=== PATIENT | male | born 1980 | race Caucasian/White ===

== ENCOUNTER 2024-06-03 12:18 | Emergency (ER) | payer OTHER ==
[~2024-06-03] VITALS: Ht 185.4 cm; Wt 83.0 kg
[~2024-06-03 12:18] MED LIST: OMEP40CA20 MT
[2024-06-03 12:20] VITALS: TEMP 36.8; O2SAT 98
[2024-06-03 14:00] VITALS: BP 128/95; PULSE 80; RESP 18; O2SAT 95
[2024-06-03 14:45] LABS: BASOPHILS % 0.7 % (0.0-2.0); CHLORIDE 111 mEq/L (98-107); DIFFERENTIAL COMMENT 0; EOSINOPHILS % 0.1 % (0.0-5.0); HEMATOCRIT. 47.1 % (42.0-52.0); HEMOGLOBIN. 15.8 g/dL (14.0-18.0); LYMPHOCYTES % 29.8 % (20.0-50.0); MEAN CORPUSCULAR HEMOGLOBIN 33.8 pg (28.0-32.0); MEAN CORPUSCULAR HGB CONC 33.5 g/dL (31.0-37.0); MEAN CORPUSCULAR VOLUME 100.9 fL (80.0-94.0); MEAN PLATELET VOLUME 7.4 fl (7.4-10.4); MONOCYTES % 7.4 % (2.0-8.0); PLATELET 275 x1000/uL (130-400); RED BLOOD CELL COUNT 4.67 mill/uL (4.7-6.1); RED CELL DISTRIBUTION WIDTH 14.8 % (11.6-14.6); WHITE BLOOD COUNT 5.9 x1000/uL (4.5-11.0)
[2024-06-03 14:46] LABS: CARBON DIOXIDE 23 mEq/L (21-32); SODIUM 145 mEq/L (136-145)
[2024-06-03 14:47] LABS: CALCIUM 8.5 mg/dL (8.7-10.4)
[2024-06-03 14:51] LABS: CREATININE 0.8 mg/dL (0.6-1.3)
[2024-06-03 14:52] LABS: GLUCOSE 104 mg/dL (70-105); UREA NITROGEN BLOOD 11 mg/dL (9-23)
[2024-06-03 15:01] LABS: ETHANOL BLOOD 285 mg/dL (<10)
[2024-06-03] MEDS: LEVETIRACETAM 500MG PREMIX 100 ML IV ONE (15:14)
== END 2024-06-03 16:17 | disposition left against medical advice (07) ==
LOC: ER 12:18
DX: F10.20 Alcohol dependence, uncomplicated (principal); G40.909 Epilepsy, unspecified, not intractable, without status epilepticus; Z79.899 Other long term (current) drug therapy; Y90.8 Blood alcohol level of 240 mg/100 ml or more
CPT/HCPCS: 80048; 80320; 83735; 85025; 36415; 70450; 93005; 96365; 99285; J1953; G0480

== ENCOUNTER 2025-03-25 22:28 | Emergency (ER) | payer OTHER ==
[~2025-03-25] VITALS: Ht 177.8 cm; Wt 91.0 kg
[2025-03-25 22:30] VITALS: O2SAT 98
[2025-03-25] MEDS: TETANUS, DIPHTHERIA, PERTUSSIS VAC/PF 0.5ML (>10YR OLD) IM ONE (23:00)
[2025-03-25 23:06] LABS: BASOPHILS % 1.0 % (0.0-2.0); EOSINOPHILS % 5.4 % (0.0-5.0); HEMATOCRIT. 49.6 % (42.0-52.0); HEMOGLOBIN. 17.2 g/dL (14.0-18.0); LYMPHOCYTES % 40.2 % (20.0-50.0); MEAN PLATELET VOLUME 8.4 fl (7.4-10.4); MONOCYTES % 10.8 % (2.0-8.0); NEUTROPHILS % 42.6 % (40.0-76.0); PLATELET 247 x1000/uL (130-400); RED BLOOD CELL COUNT 5.09 mill/uL (4.7-6.1); RED CELL DISTRIBUTION WIDTH 13.4 % (11.6-14.6)
[2025-03-25 23:08] LABS: CLARITY URINE CLEAR (CLEAR); COLOR URINE YELLOW (YELLOW); GLUCOSE URINE NEGATIVE (NEGATIVE); KETONES URINE NEGATIVE (NEGATIVE); LEUKOCYTE ESTERASE URINE NEGATIVE (NEGATIVE); NITRITE URINE NEGATIVE (NEGATIVE); OCCULT BLOOD URINE NEGATIVE (NEGATIVE); PH URINE 7.0 (4.5-8.0); PROTEIN URINE NEGATIVE (NEGATIVE); SPECIFIC GRAVITY URINE 1.003 (1.005-1.030); UROBILINOGEN URINE 0.2 E.U./dL (0.2-1.0)
[2025-03-25 23:15] LABS: *AMPHETAMINES SCREEN URINE NEGATIVE (NEGATIVE); *BARBITURATES SCREEN URINE NEGATIVE (NEGATIVE); *BENZODIAZEPINES SCREEN URINE NEGATIVE (NEGATIVE); *COCAINE SCREEN URINE NEGATIVE (NEGATIVE); CANNABINOID URINE SCREEN NEGATIVE (NEGATIVE); ECSTASY MDMA SCREEN URINE NEGATIVE (NEGATIVE); METHADONE URINE SCREEN NEGATIVE (NEGATIVE); OPIATES URINE SCREEN NEGATIVE (NEGATIVE); PHENCYCLIDINE URINE SCREEN NEGATIVE (NEGATIVE)
[2025-03-25] MEDS: LIDOCAINE HCL/EPINEPHRINE 1%-EPI 1:100,000 20ML VIAL INFIL ONE (23:15)
[2025-03-25 23:23] LABS: CREATININE 0.9 mg/dL (0.6-1.3); ETHANOL BLOOD 189 mg/dL (<10); UREA NITROGEN BLOOD < 5 mg/dL (9-23)
[2025-03-25 23:25] LABS: ASPARTATE AMINOTRANSFERASE 32 IU/L (<34); BILIRUBIN DIRECT < 0.1 mg/dL (<=3.0); BILIRUBIN TOTAL 0.3 mg/dL (0.1-1.0); PROTEIN TOTAL 7.1 g/dL (6.0-8.3)
[2025-03-26] MEDS: LORAZEPAM 0.5MG TABLET PO ONE (00:49)
[2025-03-26] MEDS: LEVETIRACETAM 500MG TABLET PO SCH (01:00)
[2025-03-26] MEDS: DIPHENHYDRAMINE 25MG CAPSULE PO ONE ×2 (01:49→17:12)
[2025-03-26] MEDS ORDERED: LEVETIRACETAM 500MG TABLET PO SCH (09:00)
[2025-03-26] MEDS: ACETAMINOPHEN 325MG TABLET PO ONE (09:43)
[2025-03-26] MEDS: LORAZEPAM 1MG TABLET PO ONE (09:44)
[2025-03-26] MEDS: HYDROXYZINE 25MG TABLET PO PRN (12:57)
[2025-03-26] MEDS: QUETIAPINE FUMARATE 25MG TABLET PO SCH (12:57)
[2025-03-26] MEDS: TRAZODONE HCL 50MG TABLET PO SCH (21:49)
[2025-03-27] MEDS ORDERED: LORAZEPAM 0.5MG TABLET PO SCH (11:00)
[2025-03-27 13:41] VITALS: BP 106/70; PULSE 74; RESP 18; TEMP 36.7; O2SAT 96
== END 2025-03-27 14:34 ==
LOC: ER 22:28
DX: S61.512A Laceration without foreign body of left wrist, initial encounter (principal); F32.A Depression, unspecified; F41.9 Anxiety disorder, unspecified; G40.909 Epilepsy, unspecified, not intractable, without status epilepticus; Z79.899 Other long term (current) drug therapy; Z91.148 Patient's other noncompliance with medication regimen for other reason; Z20.822 Contact with and (suspected) exposure to COVID-19; X78.9XXA Intentional self-harm by unspecified sharp object, initial encounter; Y93.89 Activity, other specified; Y92.89 Other specified places as the place of occurrence of the external cause; Y99.8 Other external cause status
CPT/HCPCS: 80076; 80305; 80048; 81003; 80307; 80329; 80320; 85025; 36415; 90715; 12001; 90471; 99285; 87426; J2004; Z7610 ×2; Q0163; 99284; G0480